=== PATIENT | female | born 1970 | race Caucasian/White ===

== ENCOUNTER 2021-03-31 15:36 | Emergency (ER) | payer OTHER ==
[2021-03-31 16:51] LABS: HEMOGLOBIN 13.7 gm/dl (12.3-15.3); RED BLOOD COUNT 4.28 M/UL (4.00-5.10)
[2021-03-31 17:09] LABS: BUN/CREATININE RATIO 18 (0-10)
== END 2021-03-31 17:45 | disposition home or self-care (01) ==
LOC: ER1 15:36
PROVIDERS: Family Medicine
DX: R79.9 Abnormal finding of blood chemistry, unspecified (principal)
CPT/HCPCS: 80053; 82550; 82553; 83874; 84484; 85025; 93005; 99283